=== PATIENT | female | born 1945 | race Caucasian/White ===

== ENCOUNTER → 2017-01-01 | Outpatient (CLI) | payer OTHER, MEDICARE ==
[~2017-01-01] MED LIST: IOHEXOL 300 MG/ML 75 ML VIAL. IV ONE
--- NOTE | 2017-01-01 10:36 | RAD ---
Indication: Tobacco use and COPD. Axial imaging through the chest was performed after the administration of intravenous contrast. Correlation is made with prior CT chest from 01/23/2004. No axillary lymphadenopathy is detected. There is a mildly prominent lymph node in the AP window measuring 15 mm. Small right paratracheal nodes are present. No hilar lymphadenopathy is identified. No pericardial fluid is seen. There is trace left pleural fluid or pleural thickening. Previously seen right pleural effusion has resolved. There is chronic pleural thickening and pleural calcification on the right posteriorly. Parenchymal evaluation does show a calcified granuloma in the left lower lobe. There does appear to be some pleural-parenchymal scarring in the right chest particular in the region of the right middle lobe and right lower lobe. No discrete mass or infiltrate is detected. The upper abdomen is unremarkable. Impression: Trace left pleural effusion or pleural thickening with chronic pleural and parenchymal changes in the right chest when compared with exam from 01/22/2004. Previously noted right effusion has resolved. There is a mildly prominent AP window node, indeterminate. Interval follow-up with repeat CT chest in 3-6 months could be performed to confirm stability. PQRS Compliance Statement: One or more of the following individualized dose reduction techniques were utilized for this examination: 1. Automated exposure control 2. Adjustment of the mA and/or kV according to patient size 3. Use of iterative reconstruction technique
--- NOTE | 2017-01-01 10:53 | RAD ---
Indication: Ovarian failure. Bone mineral analysis of the lumbar spine and right hip was performed. The bone mineral density of the lumbar spine from L1 to L4 is 1.208 with a T score of 0.2 and Z score of 1.5. The bone mineral density of the right femoral neck is 0.877 with a T score of -1.3 and Z score of 0.4. Impression: Normal bone mineral density of the lumbar spine with osteopenia of the right femoral neck.
--- NOTE | 2017-01-01 11:11 | RAD ---
DATE: January 01, 2017 EXAM: MAMMO GIA SCREENING BILATERAL HISTORY: Screening. COMPARISON: May 25, 2015. This study was interpreted with the benefit of Computerized Aided Detection (CAD). 2-D digital mammographic views of both breasts were performed in the CC and MLO projections. 3-D digital tomosynthesis of both breasts were performed in the CC and MLO projections and reviewed on a computer workstation. FINDINGS: The breast parenchyma is primarily fatty replaced. There are no dominant suspicious masses, suspicious microcalcifications or evidence of architectural distortion. IMPRESSION: No mammographic indicators for malignancy. BI-RADS CATEGORY: 1 NEGATIVE RECOMMENDED FOLLOW-UP: 12M 12 MONTH FOLLOW-UP PQRS compliance statement: Patient information was entered into a reminder system with a target due date January 02, 2018 for the next mammogram. Mammography is a sensitive method for finding small breast cancers, but it does not detect them all and is not a substitute for careful clinical examination. A negative mammogram does not negate a clinically suspicious finding and should not result in delay in biopsying a clinically suspicious abnormality. "Our facility is accredited by the [employer] Mammography Program." The patient's breast density may affect the ability of mammography to detect breast cancer. There are 4 categories of breast density, A, B, C and D. Breast density A means that most of the breast tissue is replaced with adipose tissue and therefore is not dense. Breast density B means that the breast tissue is mildly dense and scattered. Breast density C means that the breast tissue is heterogeneously dense. Breast density D means that the breast tissue is very dense. Breast densities especially C and D may decrease the sensitivity of mammography to detect breast cancer. Therefore, the patient may benefit from 3-D breast mammography (3D breast tomography) as a part of their screening mammogram. Insurance may or may not pay for this additional imaging. The patient's breast density based on today's mammogram is category A.
== END | disposition home or self-care (01) ==
LOC: MAMMO 09:22
PROVIDERS: ATTEND Nurse Practitioner Family
DX: Z12.31 Encounter for screening mammogram for malignant neoplasm of breast (principal); J44.9 Chronic obstructive pulmonary disease, unspecified; E28.39 Other primary ovarian failure; M85.80 Other specified disorders of bone density and structure, unspecified site; Z79.01 Long term (current) use of anticoagulants; E11.9 Type 2 diabetes mellitus without complications; Z72.0 Tobacco use
CPT/HCPCS: 71260; 77063; 77080; G0202; Q9967; 77067

== ENCOUNTER → 2017-01-23 | Outpatient (CLI) | payer OTHER, MEDICARE ==
--- NOTE | 2017-01-23 16:23 | RAD ---
EXAM: Thyroid ultrasound HISTORY: Hyperthyroidism COMPARISON: None. FINDINGS: Sonographic evaluation of the thyroid gland was performed. The right lobe measures 5.2 x 1.5 x 1.4 cm. A nodule at the lower pole measures 1.3 x 1.3 x 1.1 cm. It is solid and slightly hypoechoic. Another at the upper pole is solid and hypoechoic and measures 12 x 7 x 6 mm. The knocker out suggests an isoechoic nodule in the interpolar region but it is likely simulated by parenchymal heterogeneity. The left lobe measures 5.2 x 1.6 x 1.3 cm. The parenchyma is diffusely heterogeneous. Ill-defined hypoechoic focus in the interpolar region measures 1.5 x 1.2 x 1.0 cm. The isthmus measures 3 mm. IMPRESSION: 1. An ill-defined hypoechoic region on the left measures 1.5 x 1.2 cm but may represent only parenchymal heterogeneity rather than a discrete nodule. Follow-up can be performed in 6 months to demonstrate stability if long-term stability is not already known. 2. Solid nodules on the right measure up to 1.3 cm and can also be followed in 6 months to demonstrate initial stability.
== END | disposition home or self-care (01) ==
LOC: US 10:30
PROVIDERS: ATTEND Nurse Practitioner Family
DX: E05.90 Thyrotoxicosis, unspecified without thyrotoxic crisis or storm (principal)
CPT/HCPCS: 76536

== ENCOUNTER 2017-02-24 18:35 | Emergency (ER) | payer OTHER, MEDICARE ==
--- NOTE | 2017-02-24 19:44 | PHYS DOC ---
Past History Past Medical History: A-Fib, COPD, Depression, Diabetes, GERD, High Cholesterol , Pneumonia, Other Past Surgical History: No Surgical History Alcohol Use: None Drug Use: None Adult General Chief Complaint Chief Complaint: ABNORMAL LABS [facility] This is a pleasant 71-year-old female who was referred to the emergency department emergently for abnormal lab work. Several weeks ago patient was seen by laundry clerk and her primary care physician and diagnosed with new onset age or fibrillation. She was placed on an antiarrhythmic answer felt to recently has been symptom free since that time. During her routine workup, she was noted to have an elevated thyroid free T3 and elevated free T4 and a low TSH. This for all intense purposes demonstrates hyperthyroidism. The patient is exhibiting No Symptoms. She Still Feels Relatively Tired, She Exhibits No Hot and Cold Intolerance, She Has Had No Weight Loss, No Problems with Thoughts or Pressured Speech. She Denies Any Muscle Agitation Fasciculations or Weakness. She Demonstrates No Chest Pain, Shortness of Breath, Abdominal Pain, Diarrhea, Nausea, Success of Sweating, or Other Symptoms. She Was Referred Here Solely Because Her Elevated Levels. She Has Follow-Up with Her Assembler Utility Buildings and Primary Care Physician Already. Even ultrasound of her thyroid is been completed. Review of Systems Review of Systems Constitutional: Denies fever or chills [] Eyes: Denies change in visual acuity, redness, or eye pain [] HENT: Denies nasal congestion or sore throat [] Respiratory: Denies cough or shortness of breath [] Cardiovascular: No additional information not addressed in HPI [] GI: Denies abdominal pain, nausea, vomiting, bloody stools or diarrhea [] : Denies dysuria or hematuria [] Musculoskeletal: Denies back pain or joint pain [] Integument: Denies rash or skin lesions [] Neurologic: Denies headache, focal weakness or sensory changes [] Endocrine: Denies polyuria or polydipsia [] Allergies Allergies Allergies Coded Allergies Type Severity Reaction Last Updated Verified Sulfa (Sulfonamide Antibiotics) Allergy Unknown 01/01/17 Yes Physical Exam Physical Exam Vital signs recorded on the chart there were all within normal limits. Patient is not hypertensive she is not tachycardic she is not tachypnea and she is not febrile. Constitutional: Well developed, well nourished, no acute distress, non-toxic appearance. [] HENT: Normocephalic, atraumatic, bilateral external ears normal, oropharynx moist, no oral exudates, nose normal. [] Eyes: PERRLA, EOMI, conjunctiva normal, no discharge. [] Neck: Normal range of motion, no tenderness, supple, no stridor. [] Cardiovascular: Irregular rhythm but rate is normal. Lungs & Thorax: Bilateral breath sounds clear to auscultation [] Abdomen: Bowel sounds normal, soft, no tenderness, no masses, no pulsatile masses. [] Skin: Warm, dry, no erythema, no rash. [] Back: No tenderness, no CVA tenderness. [] Extremities: No tenderness, no cyanosis, no clubbing, ROM intact, no edema. [] Neurologic: Alert and oriented X 3, normal motor function, normal sensory function, no focal deficits noted. [] Psychologic: Affect normal, judgement normal, mood normal. [] Current Patient Data Vital Signs Vital Signs Date Time Temp Pulse Resp B/P (MAP) Pulse Ox O2 Delivery O2 Flow Rate FiO2 02/24/17 19:00 97.7 80 20 96 Room Air EKG EKG [] Radiology/Procedures Radiology/Procedures [] Course & Med Decision Making Course & Med Decision Making Pertinent Labs and Imaging studies reviewed. (See chart for details) patient presents with abnormal labs to include a documented TSH of 0.01. A free T4 2 0.4 a free T3 8. Software Release Manager note: Dr. YU MURILLO Software Release Manager called at of the service service at 7:30 PM Consult called back at 7:30 PM Discussed the case I presented and they agreed with outpatient management and referral to endocrinology. Spoke at length with Dr. Orozco international operations manager internal medicine physician about this patient's case. Given the fact this patient is completely asymptomatic as described in my history and physical patient can easily be referred back to endocrinology for appropriate treatment for overactive thyroid. She's been given precautions about thyroid storm and what to look out for the future. [] Dragon Disclaimer Dragon Disclaimer This chart was dictated in whole or in part using Voice Recognition software in a busy, high-work load, and often noisy Emergency Department environment. It may contain unintended and wholly unrecognized errors or omissions. Departure Departure: Impression: Primary Impression: Hyperthyroidism Disposition: HOME, SELF-CARE Condition: STABLE Referrals: JEREMIE SYLVESTER (PCP) Patient Instructions: Hyperthyroidism Additional Instructions: This follow-up with your primary care doctor this week to get referred to an automation tech immediately to help you health information manager hyperthyroidism. Please return for any new or increasing symptoms of shortness of breath, racing thoughts, racing heartbeat, hypertension, flushing or heat or cold intolerance, excessive sweating or diarrhea abdominal pain and vomiting. Please return for any questions you might have. ODESSA POLLACK MD Feb 24, 2017 19:44
[2017-02-24 19:55] VITALS: BP 126/59
== END 2017-02-24 19:55 | disposition home or self-care (01) ==
LOC: ER 18:35
DX: E05.90 Thyrotoxicosis, unspecified without thyrotoxic crisis or storm (principal); E11.9 Type 2 diabetes mellitus without complications; J44.9 Chronic obstructive pulmonary disease, unspecified; K21.9 Gastro-esophageal reflux disease without esophagitis; E78.00 Pure hypercholesterolemia, unspecified; I48.91 Unspecified atrial fibrillation; Z88.2 Allergy status to sulfonamides
CPT/HCPCS: 99283

== ENCOUNTER → 2017-04-04 | Outpatient (CLI) | payer OTHER, MEDICARE ==
[2017-04-04 09:33] LABS: CREATININE 0.8 mg/dL (0.6-1.0); GFR 70.9
--- NOTE | 2017-04-04 09:59 | RAD ---
EXAM: CT OF THE CHEST WITH INTRAVENOUS CONTRAST. HISTORY: Lymphadenopathy. TECHNIQUE: Computed tomography of the chest was performed after the intravenous administration of 75 mL Omnipaque 300. COMPARISON: 01/01/2017. FINDINGS: Images of the upper abdomen reveal hypoattenuation of the hepatic parenchyma consistent with at least mild diffuse hepatic steatosis. There are calcified granulomas in the spleen. Changes of cholecystectomy are noted. Bone windows reveal no suspicious lesions. There are chronic fracture deformities along the right humeral head and right lateral ribs. Small hypoattenuating nodules in the thyroid gland are stable. There are no pathologically enlarged axillary lymph nodes. Calcified mediastinal lymph nodes are likely secondary to old granulomatous disease. A subaortic node measures 2.0 x 1.4 cm. This is increased from 1.7 x 1.2 cm previously. A low right paratracheal node measures 13 x 8 mm and is increased from 11 x 7 mm . A right inferior hilar node is also increased at 14 x 9 mm as compared with 10 x 6 mm previously. Pleural thickening with calcium density on the right is stable and suggests remote pleural inflammation or pleurodesis. There is a trace pleural effusion and pleural thickening on the left. There is no pericardial effusion. The heart is not enlarged. There is a normal variant origin of the left vertebral artery directly from the aortic arch. Subpleural scarring and mild architectural distortion are noted in the right greater than left bases. There are calcified granulomas in the left lower lobe. IMPRESSION: 1. Prominent mediastinal lymph nodes have increased in size slightly since 01/01/2017. These may be reactive but are indeterminate. Ongoing follow-up/management is recommended. 2. Stable trace bilateral pleural effusions with pleural thickening and calcification on the right. Correlate for prior pleurodesis or pleural inflammation. 3. Suspect mild diffuse hepatic steatosis. *One or more of the following individualized dose reduction techniques were utilized for this examination: 1. Automated exposure control. 2. Adjustment of the mA and/or kV according to patient size. 3. Use of iterative reconstruction technique.
== END | disposition home or self-care (01) ==
LOC: CT 09:00
PROVIDERS: ATTEND Internal Medicine Pulmonary Disease
DX: J84.10 Pulmonary fibrosis, unspecified (principal); J90 Pleural effusion, not elsewhere classified; J98.4 Other disorders of lung; Z90.49 Acquired absence of other specified parts of digestive tract; R59.9 Enlarged lymph nodes, unspecified
CPT/HCPCS: 36415; 71260; 82565; 84520; Q9967

== ENCOUNTER → 2017-10-17 | Outpatient (CLI) | payer OTHER, MEDICARE ==
[2017-10-17 10:34] LABS: CREATININE 0.8 mg/dL (0.6-1.0); GFR 70.7
--- NOTE | 2017-10-17 11:19 | RAD ---
CT study of the chest with contrast Clinical indications: Adenopathy. Shortness of air. History of COPD. Smoking. TECHNIQUE: After IV infusion of 75 cc of Omnipaque 300, helical CT scanning of the chest was performed. PQRS compliance Statement One or more of the following individualized dose reduction techniques were utilized for this study: 1. Automated exposure control 2. Adjustment of the mA and/or kV according to patient size 3. Use of iterative reconstruction technique COMPARISON: April 04, 2017. FINDINGS: Again seen are mediastinal lymph nodes which have not changed in size or number. Bilateral hilar lymph nodes are not significantly enlarged and are unchanged. No new thoracic lymphadenopathy is evident. No focal aneurysmal dilatation of the thoracic aorta is seen. No thoracic aortic dissection is evident. The heart size is normal and no pericardial effusion is seen. Mild calcified atheromatous disease of the left coronary artery is seen. Minimal pleural effusion is seen on both sides. This is stable. Calcified pleural plaques are again evident on the right side which are unchanged. Old granulomatous disease is seen. Interstitial lung disease and chronic scarring of both lung mccurdy is seen. No new lung nodule or new lung mass or consolidative lung infiltrate is seen. No pneumothorax is evident. The proximal bronchial tree is patent. No adrenal mass is evident. No osteolytic process is seen. IMPRESSION: Stable chest CT. No new finding. Electronically signed by: Michael Maguire MD (10/17/2017 11:16 AM) [id number]
== END | disposition home or self-care (01) ==
LOC: CT 09:18
PROVIDERS: ATTEND Internal Medicine Pulmonary Disease
DX: J90 Pleural effusion, not elsewhere classified (principal); J44.9 Chronic obstructive pulmonary disease, unspecified; I25.10 Atherosclerotic heart disease of native coronary artery without angina pectoris; J84.9 Interstitial pulmonary disease, unspecified; D71 Functional disorders of polymorphonuclear neutrophils; Z87.891 Personal history of nicotine dependence
CPT/HCPCS: 36415; 71260; 82565; 84520; Q9967

== ENCOUNTER → 2018-01-08 | Outpatient (CLI) | payer OTHER ==
--- NOTE | 2018-01-08 16:16 | RAD ---
DATE: 01/08/2018 EXAM: DIGITAL SCREEN BILAT W/CAD HISTORY: Asymptomatic screening mammogram. History of benign left breast biopsy. COMPARISON: Prior mammogram from 01/01/2017, 05/30/2015, 05/25/2015 and 01/16/2012 This study was interpreted with the benefit of Computerized Aided Detection (CAD). The breast parenchyma is primarily fatty replaced. Breast parenchyma level density A. FINDINGS: Bilateral CC and MLO views of the breasts were performed. Right breast: There are no suspicious microcalcifications, masses or areas of architectural distortion. Left breast: There are no suspicious microcalcifications, masses or areas of architectural distortion. Findings are stable from prior mammogram. IMPRESSION: Negative bilateral mammogram. BI-RADS CATEGORY: 1 NEGATIVE RECOMMENDED FOLLOW-UP: 12M 12 MONTH FOLLOW-UP PQRS compliance statement: Patient information was entered into a reminder system with a target due date 01/08/2019 for the next mammogram. Mammography is a sensitive method for finding small breast cancers, but it does not detect them all and is not a substitute for careful clinical examination. A negative mammogram does not negate a clinically suspicious finding and should not result in delay in biopsying a clinically suspicious abnormality. "Our facility is accredited by the [employer] Mammography Program."
== END | disposition home or self-care (01) ==
LOC: MAMMO 11:07
PROVIDERS: ATTEND Physician Assistant Medical
DX: Z12.31 Encounter for screening mammogram for malignant neoplasm of breast (principal); E11.9 Type 2 diabetes mellitus without complications; E78.00 Pure hypercholesterolemia, unspecified; J44.9 Chronic obstructive pulmonary disease, unspecified; K21.9 Gastro-esophageal reflux disease without esophagitis
CPT/HCPCS: 77067

== ENCOUNTER → 2018-02-06 | Outpatient (CLI) | payer OTHER ==
--- NOTE | 2018-02-06 16:30 | RAD ---
EXAM: Thyroid sonogram. HISTORY: Thyroid nodule. TECHNIQUE: Sonographic imaging of the thyroid was performed. COMPARISON: 01/23/2017. FINDINGS: The right thyroid lobe measures 5.0 x 1.5 x 1.4 cm. The left thyroid lobe measures 5.4 x 1.5 x 1.5 cm. The isthmus measures 3.6 mm. The thyroid parenchyma is diffusely heterogeneous and contains multiple nodules. For reference purposes, the largest nodule is slightly hypoechoic and within the inferior right thyroid lobe measuring 1.8 x 1.4 x 1.0 cm, previously measuring 1.3 x 1.3 x 1.1 cm. This contains a few echogenic foci which may be due to microcalcifications. There is an isoechoic nodule within the mid right thyroid lobe measuring 1.2 x 0.8 x 0.8 cm, previously measuring 0.7 x 0.7 x 0.6 cm. There is a similar isoechoic nodule within the superior right thyroid lobe measuring 1.0 x 0.8 x 0.6 cm, previously measuring 1.2 x 0.7 x 0.6 cm. There is a single discrete nodule within the superior left thyroid lobe measuring 1.3 x 1.1 x 0.9 cm, previously measuring 1.5 x 1.2 x 1.0 cm. IMPRESSION: 1. Diffusely heterogeneous thyroid containing multiple nodules, the appearance of which favors a goiter. 2. Dominant nodule within the inferior right thyroid lobe measuring 1.8 cm, increased compared to a prior measurement of 1.3 cm. This contains echogenic foci which may be due to microcalcification. This is amenable to sonographic guided biopsy is deemed indicated based on clinical suspicion. 3. Slight interval increase in a 1.2 cm isoechoic nodule within the mid right thyroid lobe, previously measuring 0.7 cm. 4. Slight interval decrease in a 1.0 cm nodule within the superior right thyroid lobe and 1.3 cm nodule within the superior left thyroid lobe. Electronically signed by: Mariana Abrams MD (02/06/2018 4:27 PM) [place] [id number]
== END | disposition home or self-care (01) ==
LOC: US 13:53
PROVIDERS: ATTEND Physician Assistant Medical
DX: E04.2 Nontoxic multinodular goiter (principal); E11.9 Type 2 diabetes mellitus without complications; J44.9 Chronic obstructive pulmonary disease, unspecified; K21.9 Gastro-esophageal reflux disease without esophagitis; I48.91 Unspecified atrial fibrillation; E78.00 Pure hypercholesterolemia, unspecified; Z87.891 Personal history of nicotine dependence
CPT/HCPCS: 76536

== ENCOUNTER → 2018-05-08 | Outpatient (CLI) | payer OTHER ==
--- NOTE | 2018-05-08 15:40 | RAD ---
CHEST PA LATERAL History: Cough Comparison: Chest CT April 04, 2017. Findings: 2 views of the chest are submitted. There is stable chronic blunting of the right costophrenic sulcus. Heart size is stable. There is again granuloma of the mid left hemithorax. There is no significant infiltrate or pneumothorax. Impression: 1. There is stable blunting of the right costophrenic sulcus likely due to pleural parenchymal fibrotic change as seen on previous CT, no new infiltrate. Electronically signed by: Raad Jose MD (05/08/2018 3:37 PM) [facility]
== END | disposition home or self-care (01) ==
LOC: PMG 14:35
PROVIDERS: ATTEND Physician Assistant Medical
DX: J44.9 Chronic obstructive pulmonary disease, unspecified (principal); J84.10 Pulmonary fibrosis, unspecified
CPT/HCPCS: 71046

== ENCOUNTER → 2018-07-14 | Outpatient (CLI) | payer OTHER ==
--- NOTE | 2018-07-14 17:40 | CARD ---
MR#: [id number] Date of Study: 07/14/2018 Ordering Physician: BEBETO FIELDS, Referring Physician: BEBETO FIELDS, Tech: Ryanne Gutiérrez APPROVED REPORT EXAM: Two-dimensional and M-mode echocardiogram with Doppler and color Doppler. Other Information Quality : FairHR: 58bpm Technically limited study due to COPD INDICATION Atrial Fibrillation Paroxysmal atrial fibrillation RISK FACTORS Hypertension Hyperlipidemia Diabetes Smoking 2D DIMENSIONS Left Atrium(2D)3.0 (1.6-4.0cm)IVSd1.0 (0.7-1.1cm) Aortic Root(2D)2.6 (2.0-3.7cm)LVDd4.3 (3.9-5.9cm) LVOT Diameter2.1 (1.8-2.4cm)PWd1.0 (0.7-1.1cm) LVDs2.1 (2.5-4.0cm)FS (%) 51.0 % SV68.3 mlLVEF(%)82.5 (>50%) Aortic Valve AoV Peak Phillip.96.1cm/sAoV VTI21.1cm AO Peak GR.3.9mmHgLVOT Peak Phillip.88.2cm/s LVOT VTI 18.35cmAO Mean GR.2mmHg ORI (VMAX)3.08aa9IIE (VTI)3.02cm2 Mitral Valve MV E Dksvcrtb79.1cm/sMV DECEL [id number] MV A Vyvoctyp54.6cm/sE/A Ratio0.8 Pulmonary Valve PV Peak Slrnwmca90.6cm/sPV Peak Grad.2mmHg Tricuspid Valve RAP [id number] LEFT VENTRICLE The left ventricle is normal size. There is normal left ventricular wall thickness. The left ventricu lar systolic function is normal and the ejection fraction is within normal range. The Ejection Fracti on is 50-55%. Technically very limited images, best views in the subcostal area only. There is probab ly grossly normal LV segmental wall motion. Transmitral Doppler flow pattern is Grade I-abnormal rela xation pattern. RIGHT VENTRICLE The right ventricle is normal size. There is normal right ventricular wall thickness. The right ventr icular systolic function is normal. ATRIA The left atrium size is normal. The right atrium size is normal. The interatrial septum is intact wit h no evidence for an atrial septal defect or patent foramen ovale as noted on 2-D or Doppler imaging. AORTIC VALVE The aortic valve is not well visualized. Doppler and Color Flow revealed no significant aortic regurg itation. Calculated aortic valve area is 3 cm2 with maximum pressure gradient of 4 mmHg and mean pres sure gradient of 2 mmHg. There is no significant aortic valvular stenosis. MITRAL VALVE Not well visualized. There is no evidence of mitral valve prolapse. There is no mitral valve stenosis . Doppler and Color Flow revealed no mitral valve regurgitation noted. TRICUSPID VALVE The tricuspid valve is not well visualized. Doppler and Color Flow revealed trace tricuspid regurgita tion. PULMONIC VALVE The pulmonic valve is not well visualized. Doppler and Color Flow revealed no pulmonic valvular regur gitation. GREAT VESSELS The aortic root is normal in size. The IVC is normal in size and collapses >50% with inspiration. PERICARDIAL EFFUSION There is no evidence of significant pericardial effusion. Critical Notification Critical Value: No <Conclusion> The left ventricular systolic function is normal and the ejection fraction is within normal range. Th e Ejection Fraction is 50-55%. Technically very limited images, best views in the subcostal area only . There is probably grossly normal LV segmental wall motion. Signed by : Bebeto Fields, Electronically Approved : 07/14/2018 17:38:45
== END | disposition home or self-care (01) ==
LOC: ECHO 14:09
PROVIDERS: ATTEND Internal Medicine Cardiovascular Disease
DX: I48.0 Paroxysmal atrial fibrillation (principal); I10 Essential (primary) hypertension; E78.5 Hyperlipidemia, unspecified; E11.9 Type 2 diabetes mellitus without complications; F17.200 Nicotine dependence, unspecified, uncomplicated
CPT/HCPCS: 93306

== ENCOUNTER → 2018-10-19 | Outpatient (CLI) | payer OTHER ==
--- NOTE | 2018-10-19 17:08 | RAD ---
CT of the chest without contrast, 10/19/2018: HISTORY: Lung nodule Noncontrast scans were obtained and compared to a study from 10/17/2017. There are unchanged granulomatous calcifications in the left lower chest. There are scattered linear parenchymal opacities in both lungs compatible with scarring. Areas of pleural thickening in the right chest are present, some of which are calcified. These findings are unchanged and presumably represent scarring. There is some associated volume loss on the right. No new pulmonary abnormality is seen. There is also mild unchanged smooth pleural thickening posteriorly on the left, likely representing scarring. A trace amount of chronic pleural fluid is less likely. There is calcific plaquing of the thoracic aorta without evidence of aneurysm. Several coronary artery calcifications are noted. The heart is not enlarged. There are calcified mediastinal and hilar lymph nodes. No mediastinal adenopathy is evident. The gallbladder is surgically absent. Moderate multilevel degenerative changes are present in the spine. IMPRESSION: 1. Stable pleural-parenchymal scarring, right greater than left, with pleural calcifications on the right raising the possibility of previous thoracentesis versus an old infectious process. 2.. No new chest abnormality is detected. PQRS Compliance Statement: One or more of the following individualized dose reduction techniques were utilized for this examination: 1. Automated exposure control 2. Adjustment of the mA and/or kV according to patient size 3. Use of iterative reconstruction technique Electronically signed by: Shorty Meyers MD (10/19/2018 5:05 PM) [facility]
== END | disposition home or self-care (01) ==
LOC: CT 11:05
PROVIDERS: ATTEND Internal Medicine Pulmonary Disease
DX: J84.10 Pulmonary fibrosis, unspecified (principal); J92.9 Pleural plaque without asbestos; I25.10 Atherosclerotic heart disease of native coronary artery without angina pectoris; R91.1 Solitary pulmonary nodule; M47.814 Spondylosis without myelopathy or radiculopathy, thoracic region; Z90.49 Acquired absence of other specified parts of digestive tract
CPT/HCPCS: 71250

== ENCOUNTER → 2019-04-16 | Outpatient (CLI) | payer OTHER ==
--- NOTE | 2019-04-16 14:20 | RAD ---
DATE: 04/16/2019 1:00 PM EXAM: MAMMO GIA SCREENING BILATERAL HISTORY: routine screening evaluation. COMPARISON: Prior mammographic imaging 01/08/2018, 01/01/2017, 05/15/2015 Bilateral full field craniocaudal and mediolateral oblique images were obtained using digital technique. This study was interpreted with the benefit of Computerized Aided Detection (CAD). FINDINGS: Breast Density: SCATTERED The breast parenchyma shows scattered fibroglandular densities. Breast parenchyma level B Benign calcifications are present. The parenchymal pattern appears stable. No suspicious masses, microcalcifications or architectural distortion is present to suggest malignancy in either breast. The visualized axillae are unremarkable. IMPRESSION: No mammographic evidence of malignancy. BI-RADS CATEGORY: 2 BENIGN FINDING(S) RECOMMENDED FOLLOW-UP: 12M 12 MONTH FOLLOW-UP Annual screening mammography is recommended, unless clinically indicated sooner based on symptoms or change in physical exam. PQRS compliance statement: Patient information was entered into a reminder system with a target due date for the next mammogram. Mammography is a sensitive method for finding small breast cancers, but it does not detect them all and is not a substitute for careful clinical examination. A negative mammogram does not negate a clinically suspicious finding and should not result in delay in biopsying a clinically suspicious abnormality. "Our facility is accredited by the [employer] Mammography Program."
== END | disposition home or self-care (01) ==
LOC: MAMMO 12:50
PROVIDERS: ATTEND Physician Assistant Medical
DX: Z12.31 Encounter for screening mammogram for malignant neoplasm of breast (principal); N64.89 Other specified disorders of breast
CPT/HCPCS: 77063; 77067

== ENCOUNTER → 2021-01-16 | Outpatient (CLI) | payer OTHER ==
--- NOTE | 2021-01-16 15:15 | CARD ---
MR#: [id number] Date of Study: 01/16/2021 Ordering Physician: BEBETO TOMAS, Referring Physician: BEBETO TOMAS, Tech: Hiren Rodriguez [facility] APPROVED REPORT EXAM: Two-dimensional and M-mode echocardiogram with Doppler and color Doppler. Other Information Quality : FairHR: 66bpm Technically limited study due to body habitus and smoking. INDICATION Atrial Fibrillation RISK FACTORS Smoking 2D DIMENSIONS Left Atrium(2D)4.5 (1.6-4.0cm)IVSd1.0 (0.7-1.1cm) Aortic Root(2D)2.6 (2.0-3.7cm)LVDd3.6 (3.9-5.9cm) LVOT Diameter2.0 (1.8-2.4cm)PWd1.0 (0.7-1.1cm) LVDs2.2 (2.5-4.0cm)FS (%) 39.4 % SV38.5 mlLVEF(%)70.9 (>50%) Aortic Valve AoV Peak Phillip.1.5cm/sAoV VTI40.6cm AO Peak GR.9.0mmHgLVOT Peak Phillip.85.0cm/s LVOT VTI 23.38cmAO Mean GR.5mmHg ORI (VMAX)1.49zn1GPN (VTI)1.82cm2 Mitral Valve MV E Velocity0.6cm/sMV E Peak Gr.4mmHg MV DECEL [id number] A Velocity0.8cm/s MV E Mean Gr.2mmHgE/A Ratio0.8 TDI E/Lateral E'11.0 Pulmonary Valve PV Peak Xuxxarwh05.6cm/sPV Peak Grad.4mmHg Tricuspid Valve TR P. Fyhbuegg501yn/sTR Peak Gr.34mmHg Pulmonary Vein S1 Lzftxpwj66.3cm/sD2 Fwvitjmb47.6cm/s LEFT VENTRICLE The left ventricle is normal size. There is normal left ventricular wall thickness. The left ventricu lar systolic function is normal. The ejection fraction is 60-65%. There is normal LV segmental wall m otion. Transmitral Doppler flow pattern is Grade I-abnormal relaxation pattern. No left ventricle thr ombus noted on this study. There is no ventricular septal defect visualized. There is no left ventric ular aneurysm. There is no mass noted in the left ventricle. RIGHT VENTRICLE The right ventricle is normal size. There is normal right ventricular wall thickness. The right ventr icular systolic function is normal. ATRIA The left atrium is moderately dilated. The right atrium size is normal. The interatrial septum is int act with no evidence for an atrial septal defect or patent foramen ovale as noted on 2-D or Doppler i maging. AORTIC VALVE Not well seen. The aortic valve is calcified but opens well. Doppler and Color Flow revealed no signi ficant aortic regurgitation. There is no significant aortic valvular stenosis. There is no aortic farrukh vular vegetation. MITRAL VALVE The mitral valve is normal in structure and function. There is no evidence of mitral valve prolapse. There is no mitral valve stenosis. Doppler and Color Flow revealed no mitral valve regurgitation note d. TRICUSPID VALVE The tricuspid valve is normal in structure and function. Doppler and Color Flow revealed trace to mil d tricuspid regurgitation. The pulmonary artery systolic pressure is estimated at 35-40 mmHg. There i s no tricuspid valve prolapse or vegetation. There is no tricuspid valve stenosis. GREAT VESSELS The aortic root is normal in size. The pulmonary artery is normal. The IVC is normal in size and brandon apses >50% with inspiration. PERICARDIAL EFFUSION There is no evidence of significant pericardial effusion. Critical Notification Critical Value: No <Conclusion> The left ventricular systolic function is normal. The ejection fraction is 60-65%. There is normal LV segmental wall motion. Transmitral Doppler flow pattern is Grade I-abnormal relaxation pattern. The left atrium is moderately dilated. Trace to mild tricuspid regurgitation estimated PAP at 35-40 mmHg. There is no evidence of significant pericardial effusion. Signed by : Enrique Fowler, Electronically Approved : 01/16/2021 15:14:39
== END ==
LOC: ECHO 08:50
PROVIDERS: ATTEND Internal Medicine Cardiovascular Disease
DX: I08.2 Rheumatic disorders of both aortic and tricuspid valves (principal); I48.0 Paroxysmal atrial fibrillation
CPT/HCPCS: 93306

== ENCOUNTER → 2021-09-24 | Outpatient (CLI) | payer OTHER ==
--- NOTE | 2021-09-24 13:45 | RAD ---
PQRS Compliance Statement: One or more of the following individualized dose reduction techniques were utilized for this examinat ion: 1. Automated exposure control 2. Adjustment of the mA and/or kV according to patient size 3. Use of iterative reconstruction technique Exam performed: CT chest without contrast HISTORY: Follow-up pulmonary nodule. DATE OF SERVICE: 09/24/2021. COMPARISON: CT chest from 10/19/2018. TECHNIQUE: Contiguous helical acquisitions are obtained without IV contrast. Sagittal and coronal ref ormatted images are obtained and reviewed. FINDINGS: Structures at the thoracic inlet both lobes of the thyroid gland appear grossly normal. Unopacified n jessy and intrathoracic great vessels appear normal in course and caliber. Atheromatous calcification o f the aorta and coronary arteries is seen. Heart size is normal without pericardial effusion. Calcifi ed left hilar lymph node. There is a unchanged mildly prominent precarinal lymph node. Heart size is normal without pericardial effusion. There is a curvilinear pleural calcification on the right with b lunting of the right costophrenic angle. Stable nodular thickening of the right major fissure. There is a calcified nodule in the left. No pulmonary nodules or masses are identified. Limited evaluation of the upper abdominal structures is unremarkable. Cholecystectomy. Spondylotic ch anges. IMPRESSION: No acute findings seen in the chest. Right hemithorax curvilinear pleural thickening and calcification with blunting of the right costophr enic angle, perhaps from prior trauma or surgery. Correlate clinically. Electronically signed by: Nara Conley MD (09/24/2021 1:43 PM) [facility]
== END ==
LOC: CT 08:00
PROVIDERS: ATTEND Internal Medicine Pulmonary Disease
DX: R91.1 Solitary pulmonary nodule (principal); J94.8 Other specified pleural conditions; I70.0 Atherosclerosis of aorta; I25.10 Atherosclerotic heart disease of native coronary artery without angina pectoris; M47.814 Spondylosis without myelopathy or radiculopathy, thoracic region; Z90.49 Acquired absence of other specified parts of digestive tract
CPT/HCPCS: 71250